=== PATIENT | male | born 1985 | race Caucasian/White ===

== ENCOUNTER 2019-12-14 08:00 | Emergency (ER) | payer OTHER ==
[~2019-12-14] VITALS: Ht 190.5 cm; Wt 104.3 kg
[2019-12-14] MEDS ORDERED: RANITIDINE 150150 M1 PO (08:08)
[2019-12-14 08:33] LABS: INFLUENZA A ANTIGEN Negative (Negative); INFLUENZA B ANTIGEN Negative (Negative)
[2019-12-14 08:52] LABS: HEMATOCRIT 44.7 % (42.0-52.0); HEMOGLOBIN 15.8 gm/dL (14.0-18.0); MCH 33.6 pg (26.0-34.0); MCHC 35.4 g/dL (28.0-37.0); MCV 94.9 fL (80.0-100.0); MPV 6.2 fl. (7.2-11.1); NUCLEATED RBCS 0 /100WBC; PLATELET COUNT* 156 thou/uL (150-400); RDW-CV 12.3 % (10.5-14.5)
[2019-12-14 09:00] LABS: CALCIUM 8.7 mg/dL (8.5-10.1); CREATININE 0.9 mg/dL (0.6-1.3); POTASSIUM 3.7 mmol/L (3.5-5.1)
[2019-12-14 09:05] LABS: ALBUMIN 4.1 g/dL (3.4-5.0); TOTAL BILIRUBIN 1.8 mg/dL (<0.1-1.0); TOTAL PROTEIN 7.5 g/dL (6.4-8.2)
[2019-12-14 09:24] LABS: ABSOLUTE LYMPHOCYTES 0.4 thou/uL (0.8-5.3); ABSOLUTE MONOCYTES 0.4 thou/uL (0.0-1.2); ABSOLUTE NEUTROPHILS 9.2 thou/uL (1.6-8.1); PLATELET ESTIMATE ADEQUATE
[2019-12-14] MEDS ORDERED: ZOFRAN ODT4 MG SUBLING (10:13)
[2019-12-14 10:25] VITALS: BP 133/78
== END 2019-12-14 10:27 | disposition home or self-care (01) ==
LOC: M.ERS 08:00
PROVIDERS: Family Medicine
DX: R11.2 Nausea with vomiting, unspecified (principal); Z88.0 Allergy status to penicillin; Z91.041 Radiographic dye allergy status